=== PATIENT | female | born 1970 | race Caucasian/White ===

== ENCOUNTER 2019-11-07 13:03 | Outpatient (CLI) | payer BC ==
--- NOTE | 2019-11-08 14:49 | Mammography Report ---
BILATERAL DIGITAL SCREENING MAMMOGRAM 3D/2D: 11/07/2019 CLINICAL: Routine screening. Baseline exam. Family history of breast cancer. No prior exams were available for comparison. The tissue of both breasts is heterogeneously dense. T his may lower the sensitivity of mammography. No significant masses, calcifications, or other findings are seen in either breast. IMPRESSION: NEGATIVE There is no mammographic evidence of malignancy. A 1 year screening mammogram is recommended. This exam was interpreted at Station ID: [id number]. NOTE: For mammograms, a report in lay terms will be sent to the patient. Approximately 15% of breast malignancies will not be visualized mammographically. In the management of a palpable breast mass, a negative mammogram must not discourage biopsy of a clinically suspicious lesion. Electronically Signed By: Mele Moreno M.D., jr/cassi:11/07/2019 14:54:28 ACR BI-RADS Category 1: Negative 3341F PARENCHYMAL PATTERN: (D) - The breast(s) demonstrate(s) heterogeneously dense fibroglandular sharon reyes. BI-RADS CATEGORY: (1) - 1 RECOMMENDATION: (ANNUAL) - Recommend routine annual screening mammography. [id number] 1 year screening LATERALITY: (B)
== END 2019-11-07 13:04 | disposition home or self-care (01) ==
LOC: DI 13:03
PROVIDERS: ATTEND Nurse Practitioner Family
DX: Z12.31 Encounter for screening mammogram for malignant neoplasm of breast (principal); Z80.3 Family history of malignant neoplasm of breast
CPT/HCPCS: 77063; 77067

== ENCOUNTER 2019-12-03 09:00 | Outpatient (CLI) | payer BC | END 2019-12-03 09:01 | disposition home or self-care (01) | LOC: COV 09:00 | PROVIDERS: ATTEND Family Medicine | DX: Z20.828 Contact with and (suspected) exposure to other viral communicable diseases (principal) ==

== ENCOUNTER 2020-03-18 09:30 | Outpatient (CLI) | payer BC | END 2020-03-18 09:31 | disposition home or self-care (01) | LOC: COV 09:30 | PROVIDERS: ATTEND Family Medicine | DX: R07.0 Pain in throat (principal); Z20.828 Contact with and (suspected) exposure to other viral communicable diseases ==

== ENCOUNTER 2021-01-29 10:19 | Outpatient (CLI) | payer BC ==
--- NOTE | 2021-01-30 09:02 | Mammography Report ---
BILATERAL DIGITAL SCREENING MAMMOGRAM 3D/2D: 01/29/2021 CLINICAL: Routine screening. Comparison is made to exam dated: 11/07/2019 mammogram - [facility]. The tissue of both breasts is heterogeneously dense. This may lower the sensitivity of mammography. There is an oval focal asymmetry with an obscured margin in the right breast at 3 o'clock anterior de pth. This is more prominent. No other significant masses, calcifications, or other findings are seen in either breast. IMPRESSION: INCOMPLETE: NEEDS ADDITIONAL IMAGING EVALUATION The oval focal asymmetry in the right breast resembles a cyst and is indeterminate. Additional views with possible ultrasound are recommended. This exam was interpreted at Station ID: [id number]. NOTE: For mammograms, a report in lay terms will be sent to the patient. Approximately 15% of breast malignancies will not be visualized mammographically. In the management of a palpable breast mass, a negative mammogram must not discourage biopsy of a clinically suspicious lesion. Electronically Signed By: Shyam Rehman M.D. slc/:01/29/2021 12:14:43 ACR BI-RADS Category 0: Incomplete 3340F PARENCHYMAL PATTERN: (D) - The breast(s) demonstrate(s) heterogeneously dense fibroglandular sharon reyes. BI-RADS CATEGORY: (0) - 0 Mammo and [place] [id number] Immediate follow-up LATERALITY: (B)
== END 2021-01-29 10:20 | disposition home or self-care (01) ==
LOC: DI 10:19
PROVIDERS: ATTEND Nurse Practitioner Family
DX: Z12.31 Encounter for screening mammogram for malignant neoplasm of breast (principal); R92.8 Other abnormal and inconclusive findings on diagnostic imaging of breast

== ENCOUNTER 2021-02-27 08:57 | Outpatient (CLI) | payer BC ==
--- NOTE | 2021-03-02 15:22 | Mammography Report ---
UNILATERAL RIGHT DIGITAL DIAGNOSTIC MAMMOGRAM 3D/2D: 02/27/2021 CLINICAL: Patient returns today to evaluate a focal asymmetry in the right breast. Comparison is made to exams dated: 01/29/2021 mammogram and 11/07/2019 mammogram - [facility]. The tissue of right breast is heterogeneously dense. This may lower the sensitivity of m ammography. There is a 0.8 cm oval focal asymmetry with an obscured margin in the right breast at 3 o'clock anter ior depth. This is seen in additional views. This is more prominent. No other significant masses or calcifications are seen in the breast. IMPRESSION: INCOMPLETE: NEEDS ADDITIONAL IMAGING EVALUATION The 0.8 cm oval focal asymmetry in the right breast resembles a cyst and is indeterminate. An ultras ound is recommended. This exam was interpreted at Station ID: [id number]. NOTE: For mammograms, a report in lay terms will be sent to the patient. Approximately 15% of breast malignancies will not be visualized mammographically. In the management of a palpable breast mass, a negative mammogram must not discourage biopsy of a clinically suspicious lesion. Electronically Signed By: Narinder waddell/cassi:02/27/2021 10:00:56 ACR BI-RADS Category 0: Incomplete 3340F PARENCHYMAL PATTERN: (D) - The breast(s) demonstrate(s) heterogeneously dense fibroglandular sharon reyes. BI-RADS CATEGORY: (0) - 0 Ultrasound [id number] Immediate follow-up LATERALITY: (R)
--- NOTE | 2021-03-02 15:22 | Ultrasound Report ---
LIMITED ULTRASOUND OF RIGHT BREAST: 02/27/2021 CLINICAL: Short term follow up of the right breast. Comparison is made to exams dated: 02/27/2021 mammogram, 01/29/2021 mammogram, and 11/07/2019 mammogr am - [facility]. Color flow ultrasound of the right breast 3 o'clock region was performed. Gifford scale images of the r eal-time examination were reviewed. There is a benign 0.5 cm x 0.6 cm x 0.5 cm oval cyst with a smooth internal wall in the right breast at 3 o'clock middle depth 4 cm from the nipple. This oval cyst is anechoic with posterior acoustic e nhancement. This correlates with mammography findings. Color flow imaging demonstrates that there i s no vascularity present. IMPRESSION: BENIGN There is no sonographic evidence of malignancy. The 0.5 cm x 0.6 cm x 0.5 cm oval cyst in the right breast is consistent with a simple cyst and is be nign. A 1 year screening mammogram is recommended. This exam was interpreted at Station ID: [id number]. Electronically Signed By: Narinder waddell/cassi:02/27/2021 10:01:54 Ultrasound BI-RADS: 2 Benign BI-RADS CATEGORY: (2) - 2 RECOMMENDATION: (ANNUAL) - Recommend routine annual screening mammography. [id number] 1 year screening LATERALITY: (B)
== END 2021-02-27 08:58 | disposition home or self-care (01) ==
LOC: DI 08:57
PROVIDERS: ATTEND Nurse Practitioner Family
DX: N60.01 Solitary cyst of right breast (principal)

== ENCOUNTER 2022-09-27 11:49 | Outpatient (CLI) | payer BC, OTHER ==
--- NOTE | 2022-09-27 15:53 | XRAY Report ---
PROCEDURE: Shoulder 3 View LT INDICATIONS: LEFT SHOULDER SPRAIN TECHNIQUE: 3 views of the shoulder were acquired. COMPARISON: None. FINDINGS: Bones: No fractures or dislocations. No suspicious bony lesions. Visualized ribs appear intact. Mild to moderate acromioclavicular joint degenerative. Soft tissues: Amorphous calcification projecting over the acromiohumeral interval is most likely sec ondary to calcific tendinopathy. IMPRESSION: 1.Rotator cuff calcific tendinopathy. 2.No acute osseous abnormality. If symptoms persist or there is continued clinical concern, further e valuation with MRI may be helpful. Reviewed by: Narinder Malik MD on 09/27/2022 3:52 PM PDT Approved by: Narinder Malik MD on 09/27/2022 3:52 PM PDT Station ID: [id number]
== END 2022-09-27 23:59 | disposition home or self-care (01) ==
LOC: DI.S 11:49
PROVIDERS: ATTEND Physician Assistant Medical
DX: M19.012 Primary osteoarthritis, left shoulder (principal); M25.812 Other specified joint disorders, left shoulder